=== PATIENT | female | born 1985 | race Caucasian/White ===

== ENCOUNTER 2022-03-01 10:44 | Emergency (ER) | payer OTHER, SELFPAY ==
[2022-03-01] MEDS ORDERED: Ketorolac Tromethamine 30 MG/ML VIAL ONE (11:01)
[2022-03-01] MEDS ORDERED: HYDROcodone/Acetaminophen 5/325 mg Tablet ONE (11:38)
[2022-03-01] MEDS ORDERED: Bupivacaine 0.5% 10 ML VIAL ONE (11:48)
== END 2022-03-01 12:32 | disposition home or self-care (01) ==
LOC: ERS 10:44
DX: S93.402A Sprain of unspecified ligament of left ankle, initial encounter (principal); N83.209 Unspecified ovarian cyst, unspecified side; X50.1XXA Overexertion from prolonged static or awkward postures, initial encounter; Y93.64 Activity, baseball
CPT/HCPCS: 64450; 96372; J1885; J3490